=== PATIENT | male | born 1945 | race Caucasian/White ===

== ENCOUNTER 2018-02-03 19:18 | Emergency (ER) | payer MEDICARE, OTHER ==
[2018-02-03 19:45] VITALS: BP 133/77
[2018-02-03 20:40] LABS: CHLORIDE,CL 101 mmol/L (98-107); SODIUM,NA 137 mmol/L (136-145)
[2018-02-03 20:42] LABS: ANION GAP 13.2 mmol/L (10-20)
[2018-02-03] MEDS: Levofloxacin 500 MG Tab PO ONE (21:06)
--- NOTE | 2018-02-04 00:47 | EDM.PDOC ---
ED HPI GENERAL MEDICAL PROBLEM - General Chief Complaint: Respiratory Problem Time Seen by Provider: 02/03/18 19:21 Source of Information: Reports: Patient History Limitations: Reports: No Limitations - History of Present Illness INITIAL COMMENTS - FREE TEXT/NARRATIVE: Pt. presents to ER with an approx. 2 week history of cough and chest congestion. He was prescribed Augmentin on 01/24/18 and previously was prescribed cheratussin for cough, and prednisone when he was seen in clinic as well as albuterol for what sounds like a COPD exacerbation/reactive airway. He currently has 2 doses of augmentin left and states that he is feeling somewhat worse. Denies any fever or chills. He states that he did have sinus congestion and rhinorrhea which he states has resolved, but he continues to have non- productive cough. He denies any travel. No recent hospitalizations. Denies any chest discomfort. Pt. has a history of valvular heart disease and CHF which has been in good control, treated with medication and a biventricular pacemaker. Denies any increased peripheral edema or weight gain. Duration: Constant, Getting Worse Location: Reports: Chest Quality: Reports: Burning Severity: Moderate Improves with: Reports: Medication (albuterol) Worsens with: Reports: Breathing, Movement Context: Reports: Exercise Associated Symptoms: Reports: Cough, Malaise. Denies: Diaphoresis, Fever/Chills , Nausea/Vomiting, Rash - Related Data Allergies Allergy/AdvReac Type Severity Reaction Status Date / Time colestipol Allergy Cannot Verified 02/03/18 19:50 Remember felodipine Allergy Cannot Verified 02/03/18 19:50 Remember fluvastatin Allergy Cannot Verified 02/03/18 19:50 Remember gemfibrozil Allergy Cannot Verified 02/03/18 19:50 Remember lovastatin Allergy Cannot Verified 02/03/18 19:50 Remember metoprolol Allergy Cannot Verified 02/03/18 19:50 Remember simvastatin Allergy Cannot Verified 02/03/18 19:50 Remember Home Meds: Home Meds Albuterol [Ventolin HFA] 1 puff INH Q6H PRN 11/14/13 [History] Aspirin [Jemal Chewable] 81 mg PO DAILY 11/14/13 [History] Calcium Carb & Citrate/Vit D3 [Calcium + Vitamin D3 Caplet] 1 each PO DAILY [History] Furosemide [Lasix] 20 mg PO DAILY 11/14/13 [History] Lisinopril [Prinivil] 0.5 tab PO DAILY 11/14/13 [History] Loratadine [Wal-Itin] 10 mg PO DAILY 11/14/13 [History] Mometasone Furoate [Asmanex 110 MCG] 1 puff INH DAILY 11/14/13 [History] Multivit-Min/FA/Lutein/Zeaxant [Macular Vitamin Tablet] 1 each PO BID 11/14/13 [ History] atorvaSTATin [Lipitor] 5 mg PO BEDTIME 11/14/13 [History] predniSONE [Prednisone] 20 mg PO ASDIRECTED 11/14/13 [History] Carvedilol 12.5 mg PO DAILY 08/13/15 [History] Clobetasol [Clobetasol Propionate 0.05%] 30 gm TOP BID 08/13/15 [History] Levothyroxine [Synthroid] 50 mcg PO ACBREAKFAST 08/13/15 [History] Spironolactone 25 mg PO DAILY 08/13/15 [History] Past Medical History Cardiovascular History: Reports: Heart Failure, High Cholesterol, Hypertension, Pacemaker Social & Family History - Tobacco Use Smoking Status *Q: Former Smoker Used Tobacco, but Quit: Yes Month/Year Tobacco Last Used: 1979 - Living Situation & Occupation Living situation: Reports: Occupation: Employed ED ROS GENERAL - Review of Systems Review Of Systems: See Below Constitutional: Reports: No Symptoms, Malaise, Fatigue. Denies: Fever, Chills, Weakness, Night Sweats, Diaphoresis, Weight Loss HEENT: Reports: No Symptoms Respiratory: Reports: Wheezing, Cough. Denies: Shortness of Breath, Sputum Cardiovascular: Reports: No Symptoms Endocrine: Reports: No Symptoms GI/Abdominal: Reports: No Symptoms : Reports: No Symptoms Musculoskeletal: Reports: No Symptoms Skin: Reports: No Symptoms Neurological: Reports: No Symptoms Psychiatric: Reports: No Symptoms Hematologic/Lymphatic: Reports: No Symptoms Immunologic: Reports: No Symptoms ED EXAM, GENERAL - Physical Exam Exam: See Below Exam Limited By: No Limitations General Appearance: Alert, WD/WN, No Apparent Distress Ears: Normal External Exam, Normal Canal, Hearing Grossly Normal, Normal TMs Ear Exam: Bilateral Ear: Auricle Normal, Canal Normal (moderate cerumen), TM normal Nose: Normal Inspection, Normal Mucosa, No Blood Throat/Mouth: Normal Inspection, Normal Lips, Normal Teeth, Normal Gums, Normal Oropharynx, Normal Voice, No Airway Compromise Head: Atraumatic, Normocephalic Neck: Normal Inspection, Supple, Non-Tender, Full Range of Motion Respiratory/Chest: No Respiratory Distress, Lungs Clear, No Accessory Muscle Use , Decreased Breath Sounds, Wheezing (mild mann. wheezing) Cardiovascular: Normal Peripheral Pulses, Regular Rate, Rhythm, No Edema, No Gallop, No JVD, No Murmur, No Rub Peripheral Pulses: 3+: Radial (R) GI/Abdominal: Normal Bowel Sounds, Soft, Non-Tender, No Organomegaly, No Distention, No Abnormal Bruit, No Mass (Male) Exam: Deferred Rectal (Males) Exam: Deferred Back Exam: Normal Inspection, Full Range of Motion, NT Extremities: Normal Inspection, Normal Range of Motion, Non-Tender, No Pedal Edema, Normal Capillary Refill. No: Pedal Edema Neurological: Alert, Oriented, CN II-XII Intact, Normal Cognition, Normal Gait, Normal Reflexes, No Motor/Sensory Deficits Psychiatric: Normal Affect, Normal Mood Skin Exam: Warm, Dry, Intact, No Rash, Pallor Lymphatic: No Adenopathy EKG INTERPRETATION Rhythm: Other (paced rhythm, unchanged from last EKG in clinic) Course - Vital Signs Last Recorded V/S: Last Vital Signs Temp 36.8 C 02/03/18 19:21 Pulse 89 02/03/18 19:21 Resp 18 02/03/18 19:21 BP 133/77 02/03/18 19:21 Pulse Ox 96 02/03/18 19:21 - Orders/Labs/Meds Orders: Active Orders 24 hr Category Date Time Status EKG Documentation Completion [RC] STAT Care 02/03/18 19:50 Active Chest 2V [CR] Stat Exams 02/03/18 19:52 Taken INFLUENZA A+B AG SCREEN [RM] Stat Lab 02/03/18 20:17 Ordered Labs: Laboratory Tests 02/03/18 02/03/18 Range/Units 20:06 20:06 WBC 10.8 H (4.0-10.0) x10^3/uL RBC 4.76 (4.5-6.0) x10^6/uL Hgb 15.3 (14.0-18.0) g/dL Hct 44.1 (40.0-52.0) % MCV 92.6 (78.0-93.0) fL MCH 32.1 H (26.0-32.0) pg MCHC 34.7 (32.0-36.0) g/dL RDW Coeff of Pearl 13.1 (10.0-15.0) % Plt Count 193 (130-400) x10^3/uL Add Manual Diff Yes Neutrophils % (Manual) 66 (50-80) % Band Neutrophils % 1 (0-6) % Lymphocytes % (Manual) 18 L (25-50) % Monocytes % (Manual) 8 (2-11) % Eosinophils % (Manual) 7 H (0-4) % Platelet Estimate Adequate Sodium 137 (136-145) mmol/L Potassium 4.2 (3.5-5.1) mmol/L Chloride 101 (98-107) mmol/L Carbon Dioxide 27 (21-32) mmol/L Anion Gap 13.2 (10-20) mmol/L BUN 17 (7-18) mg/dL Creatinine 0.8 (0.70-1.30) mg/dL Est Cr Clr Drug Dosing TNP Estimated GFR (MDRD) > 60 Glucose 224 H (74-106) mg/dL Calcium 9.3 (8.5-10.1) mg/dL Corrected Calcium 9.78 (8.5-10.1) mg/dL Phosphorus 3.6 (2.6-4.7) mg/dL Magnesium 2.0 (1.8-2.4) mg/dL Total Bilirubin 0.4 (0.2-1.0) mg/dL AST 14 L (15-37) U/L ALT 31 (16-63) U/L Alkaline Phosphatase 81 (46-116) U/L Troponin I < 0.017 (<=0.056) ng/mL C-Reactive Protein 0.3 (<=0.9) mg/dL NT-Pro-B Natriuret Pep 56 (<=125) pg/mL Total Protein 6.9 (6.4-8.2) g/dL Albumin 3.4 (3.4-5.0) g/dL Globulin 3.5 Albumin/Globulin Ratio 0.97 Meds: Medications Discontinued Medications Generic Name Dose Route Start Last Admin Trade Name Freq PRN Reason Stop Dose Admin Levofloxacin 500 mg 02/03/18 20:55 02/03/18 21:06 Levaquin PO 02/03/18 20:56 500 mg ONETIME ONE Administration - Radiology Interpretation Free Text/Narrative:: mild cardiomegaly. No infiltrate or evidence of CHF noted. Departure - Departure Time of Disposition: 20:57 Disposition: Home, Self-Care 01 Clinical Impression: Bronchitis, Reactive airway disease with acute exacerbation - Discharge Information Instructions: Acute Bronchitis, Adult, [id number] Referrals: Pal Harrington MD [Primary Care Provider] - Forms: ED Department Discharge Additional Instructions: Levaquin 500mg 1 daily for 7 days Continue with cheratussin as needed for cough Albuterol nebulizer or inhaler as needed Start cetirizine 10mg once daily Follow-up in clinic in 10-14 days - Problem List Review Problem List Initiated/Reviewed/Updated: Yes - My Orders Last 24 Hours: My Active Orders 02/03/18 19:50 EKG Documentation Completion [RC] STAT 02/03/18 19:52 Chest 2V [CR] Stat 02/03/18 20:17 INFLUENZA A+B AG SCREEN [RM] Stat - Assessment/Plan Last 24 Hours: My Active Orders 02/03/18 19:50 EKG Documentation Completion [RC] STAT 02/03/18 19:52 Chest 2V [CR] Stat 02/03/18 20:17 INFLUENZA A+B AG SCREEN [RM] Stat Plan: Levaquin 500mg 1 daily for 7 days Continue with cheratussin as needed for cough Albuterol nebulizer or inhaler as needed Start cetirizine 10mg once daily Follow-up in clinic in 10-14 days His blood sugar is controlled with oral medication and is elevated, so we will forgo a second course of steroids. He was noted to have eosinophilla on CBC, so advised him to start zyrtec.
== END 2018-02-03 21:18 | disposition home or self-care (01) ==
LOC: VM.ED 19:18
DX: J45.901 Unspecified asthma with (acute) exacerbation (principal); J40 Bronchitis, not specified as acute or chronic; I11.0 Hypertensive heart disease with heart failure; I50.9 Heart failure, unspecified; Z88.8 Allergy status to other drugs, medicaments and biological substances; Z79.899 Other long term (current) drug therapy; Z87.891 Personal history of nicotine dependence
CPT/HCPCS: 36415; 71046; 80053; 83735; 83880; 84100; 84484; 85025; 86140; 87804; 87804-59; 93005; 99284; 99284-GF; A9270-GY

== ENCOUNTER 2021-06-11 23:15 | Emergency (ER) | payer MEDICARE, OTHER ==
[2021-06-11 23:40] VITALS: BP 134/63; PULSE 72
[2021-06-11] MEDS ORDERED: Albuterol/Ipratropium 3.0-0.5 MG/3 ML Neb Soln NEB ONE (23:49)
--- NOTE | 2021-06-11 23:50 | EDM.PDOC ---
ED HPI GENERAL MEDICAL PROBLEM - General Chief Complaint: Respiratory Problem Stated Complaint: Influenza A, cough Time Seen by Provider: 06/11/21 23:30 Source of Information: Reports: Patient, Family History Limitations: Reports: No Limitations - History of Present Illness INITIAL COMMENTS - FREE TEXT/NARRATIVE: States was seen last by his provider and was dx'd with flu. His symptoms started a couple of days before that. He had a cough, was tired, and somewhat SOB. He states that he received a message after pharmacy was closed on Sunday that he had Tamiflu Rx. He is asking for it now. He states he is getting better. He has neb machine at home, but only uses it once a day. He had med bottles with prednisone, augmentin, and guafenisin ac syrup. States for hipolito smoker and has some COPD. Onset Date: 05/29/21 Duration: Improving Location: Reports: Chest, Other (no chest pain) Improves with: Reports: Medication, Rest Worsens with: Reports: Movement Associated Symptoms: Reports: Cough, Malaise, Shortness of Breath Treatments [employer]: Reports: Other Medication(s), Other (see below) (prednisone, augmentin, guafenisin ac) Other Treatments [employer]: Albuterol - Related Data Allergies Allergy/AdvReac Type Severity Reaction Status Date / Time colestipol Allergy Cannot Verified 02/03/18 19:50 Remember felodipine Allergy Cannot Verified 02/03/18 19:50 Remember fluvastatin Allergy Cannot Verified 02/03/18 19:50 Remember gemfibrozil Allergy Cannot Verified 02/03/18 19:50 Remember lovastatin Allergy Cannot Verified 02/03/18 19:50 Remember metoprolol Allergy Cannot Verified 02/03/18 19:50 Remember simvastatin Allergy Cannot Verified 02/03/18 19:50 Remember Home Meds: Home Meds Albuterol [Ventolin HFA] 1 puff INH Q6H PRN 11/14/13 [History] Aspirin [Jemal Chewable] 81 mg PO DAILY 11/14/13 [History] Calcium Carb & Citrate/Vit D3 [Calcium + Vitamin D3 Caplet] 1 each PO DAILY 11/14/13 [History] Furosemide [Lasix] 20 mg PO DAILY 11/14/13 [History] Loratadine [Wal-Itin] 10 mg PO DAILY 11/14/13 [History] Mometasone Furoate [Asmanex 110 MCG] 1 puff INH DAILY 11/14/13 [History] Multivit-Min/FA/Lutein/Zeaxant [Macular Vitamin Tablet] 1 each PO BID 11/14/13 [History] atorvaSTATin [Lipitor] 5 mg PO BEDTIME 11/14/13 [History] lisinopriL [Prinivil] 0.5 tab PO DAILY 11/14/13 [History] predniSONE [Prednisone] 20 mg PO ASDIRECTED 11/14/13 [History] Clobetasol [Clobetasol Propionate 0.05%] 30 gm TOP BID 08/13/15 [History] Levothyroxine [Synthroid] 50 mcg PO ACBREAKFAST 08/13/15 [History] Spironolactone 25 mg PO DAILY 08/13/15 [History] carvediloL [Carvedilol] 12.5 mg PO DAILY 08/13/15 [History] Past Medical History Cardiovascular History: Reports: Heart Failure, High Cholesterol, Hypertension, Pacemaker Respiratory History: Reports: COPD Social & Family History - Family History Family Medical History: No Pertinent Family History - Tobacco Use Tobacco Use Status *Q: Never Tobacco User Second Hand Smoke Exposure: No - Recreational Drug Use Recreational Drug Use: No - Living Situation & Occupation Living situation: Reports: Occupation: Employed ED ROS GENERAL - Review of Systems Review Of Systems: Comprehensive ROS is negative, except as noted in HPI. ED EXAM, GENERAL - Physical Exam Exam: See Below Exam Limited By: No Limitations General Appearance: Alert, No Apparent Distress Ears: Normal External Exam, Normal Canal, Other (somewhat hard of hearing) Nose: Normal Inspection, Normal Mucosa, No Blood Throat/Mouth: Normal Inspection, Normal Lips, Normal Gums, Normal Oropharynx, Normal Voice, No Airway Compromise Head: Atraumatic, Normocephalic Neck: Normal Inspection, Supple, Non-Tender, Full Range of Motion Respiratory/Chest: No Respiratory Distress, No Accessory Muscle Use, Chest Non- Tender, Rhonchi, Wheezing Cardiovascular: Regular Rate, Rhythm GI/Abdominal: Soft, Non-Tender, No Distention Back Exam: Normal Inspection, Full Range of Motion Extremities: Normal Range of Motion, Non-Tender, No Pedal Edema, Normal Capillary Refill Neurological: Alert, Oriented, Normal Cognition, Normal Gait, Other (somewhat hard of hearing) Psychiatric: Normal Affect, Normal Mood Skin Exam: Warm, Dry, Intact, Normal Color, No Rash Lymphatic: No Adenopathy Course - Vital Signs Last Recorded V/S: Last Vital Signs Temp 99.6 F 06/11/21 23:15 Pulse 72 06/11/21 23:15 Resp 18 06/11/21 23:15 BP 134/63 06/11/21 23:15 Pulse Ox 95 06/11/21 23:15 - Orders/Labs/Meds Orders: Active Orders 24 hr Category Date Time Status RT Aerosol Therapy [RC] ASDIRECTED Care 06/11/21 23:50 Active Benzonatate [Tessalon Perles] Med 06/12/21 00:40 Ordered 100 mg PO TID PRN Medication Orders Benzonatate (Benzonatate 100 Mg Cap) 100 mg PO TID PRN PRN Reason: Cough Meds: Medications Generic Name Dose Route Start Last Admin Trade Name Freq PRN Reason Stop Dose Admin Benzonatate 100 mg 06/12/21 00:40 Benzonatate 100 Mg Cap PO TID PRN Cough Discontinued Medications Generic Name Dose Route Start Last Admin Trade Name Freq PRN Reason Stop Dose Admin Albuterol/Ipratropium 3 ml 06/11/21 23:49 06/12/21 00:12 Albuterol/Ipratropium 3.0-0.5 Mg/3 Ml Neb Soln NEB 06/11/21 23:50 3 ml ONETIME ONE Administration - Re-Assessments/Exams Free Text/Narrative Re-Assessment/Exam: 06/12/21 00:59 Discussed that Tamiflu is given within 48 hours of symptoms. Stated he understood. Gave duo neb tx and he responded favorably. Lung sounds improved and he stated that he felt better. Tessalon Perles given and Rx written for them. Departure - Departure Time of Disposition: 23:50 Disposition: Home, Self-Care 01 Condition: Good Clinical Impression: Influenza, Cough - Discharge Information Instructions: Cough, Adult, Influenza, Adult, [id number] Forms: ED Department Discharge Additional Instructions: Rest. Use your nebulizer as directed at home. Get prescription filled on Sunday. Cough medicines as directed. Lots of fluids. Rest. Follow up with your Primary Care Provider as needed. Sepsis Event Note (ED) - Evaluation Sepsis Screening Result: No Definite Risk - Focused Exam Vital Signs: Vital Signs Temp Pulse Resp BP Pulse Ox 06/11/21 23:15 99.6 F 72 18 134/63 95 - Problem List & Annotations (1) Cough SNOMED Code(s): 09466180 Code(s): R05.9 - COUGH, UNSPECIFIED Status: Acute Current Visit: Yes - Problem List Review Problem List Initiated/Reviewed/Updated: Yes - My Orders Last 24 Hours: My Active Orders 06/11/21 23:50 RT Aerosol Therapy [RC] ASDIRECTED 06/12/21 00:40 Benzonatate [Tessalon Perles] 100 mg PO TID PRN - Assessment/Plan Last 24 Hours: My Active Orders 06/11/21 23:50 RT Aerosol Therapy [RC] ASDIRECTED 06/12/21 00:40 Benzonatate [Tessalon Perles] 100 mg PO TID PRN
[2021-06-12] MEDS ORDERED: Benzonatate 100 MG Cap PO PRN (00:40)
== END 2021-06-12 00:51 | disposition home or self-care (01) ==
LOC: VM.ED 23:15
DX: J11.1 Influenza due to unidentified influenza virus with other respiratory manifestations (principal); I11.0 Hypertensive heart disease with heart failure; I50.9 Heart failure, unspecified; J44.9 Chronic obstructive pulmonary disease, unspecified; Z88.8 Allergy status to other drugs, medicaments and biological substances; Z79.82 Long term (current) use of aspirin; Z79.899 Other long term (current) drug therapy
CPT/HCPCS: 94640; 99284; A9270; J7620-GY